=== PATIENT | female | born 1990 | race Caucasian/White ===

== ENCOUNTER 2023-02-24 10:06 | Day surgery (SDC) | payer MEDICAID ==
[~2023-02-24] VITALS: Ht 165.1 cm; Wt 63.5 kg
[2023-02-24 10:35] LABS: HCG,QUAL RESULT NEGATIVE (NEGATIVE)
[2023-02-24] MEDS ORDERED: ONDANSETRON HCL 4 MG/2 ML VIAL ONE (13:47)
[2023-02-24] MEDS ORDERED: KETOROLAC TROMETHAMINE 30 MG VIAL ONE (13:47)
[2023-02-24] MEDS ORDERED: LR 1,000 ML IV.SOLN IV ONE (13:47)
[2023-02-24] MEDS ORDERED: DEXAMETHASONE SOD PHOSPHATE 4 MG/ML VIAL ONE (13:47)
[2023-02-24] MEDS ORDERED: fentaNYL CITRATE/PF 100 MCG/2 ML AMP ONE (13:47)
[2023-02-24] MEDS ORDERED: DESFLURANE 15 MIN GAS INH ONE (13:47)
[2023-02-24] MEDS ORDERED: PROPOFOL 200MG/ 20ML VIAL (DIPRIVAN) IV ONE (13:47)
[2023-02-24] MEDS ORDERED: WATER FOR IRRIGATION,STERILE 1,000 ML IRRIG.SOLN IR ONE (13:47)
[2023-02-24] MEDS ORDERED: NS IRRIG SOLN 5000 ML IR ONE (13:47)
[2023-02-24 15:22] VITALS: BP_SYST 105
== END 2023-02-24 15:55 | disposition home or self-care (01) ==
LOC: SDS 10:06 → SMU 10:07 → SDS 15:55
PROVIDERS: ATTEND Obstetrics & Gynecology
DX: N92.0 Excessive and frequent menstruation with regular cycle (principal); N84.0 Polyp of corpus uteri
CPT/HCPCS: 87081; 58558; 84703; 88305; J1100; J1885; J2405; J2704; J3010; J7120; C1819